=== PATIENT | male | born 1985 | race Caucasian/White ===

== ENCOUNTER 2022-01-22 17:53 | Emergency (ER) | payer SELFPAY ==
[2022-01-22 18:04] VITALS: BP 149/101; PULSE 100; RESP 18; TEMP 36.8; O2SAT 96; BMI 20.5
[2022-01-22 18:14] VITALS: BP 139/80; PULSE 89; RESP 16; O2SAT 95
--- NOTE | 2022-01-22 18:35 | W.ED.WOUNDLC ---
HPI - Wound/Laceration General: Chief Complaint: Wound/Laceration Stated Complaint: Left Knee Injury Chainsaw Time Seen by Provider: 01/22/22 18:08 History of Present Illness: 36-year-old male patient comes in with a anterior knee injury. Incident occurred this afternoon just prior to arrival. Patient was using a chain saw when it caught the left anterior knee. Patient has a laceration to do the site. No signs of serious injury to the deep structures. Patient is ambulatory without difficulty. Review of Systems General: Reports: 10 or more systems reviewed and unremarkable except in HPI and below Card: Denies: chest pain Resp: Denies: dyspnea Musc: Reports: extremity pain Skin/Breast: Reports: new lesions Physical Exam Const: COMMON NORMALS: alert Neck/C-Spine: COMMON NORMALS: full ROM Resp: COMMON NORMALS: normal respiratory effort Cardio: COMMON NORMALS: regular rate and regular rhythm RATE: regular rate RHYTHM: regular rhythm Extremity: LEFT LOWER EXTREMITY: Yes knee joint (7 cm laceration to anterior left knee, no deep tissue injury.) Left knee: Yes inspection, Yes palpation and Yes ROM Neuro: SENSORIUM/ORIENTATION: Yes alert Skin: TRAUMA: laceration (7 cm laceration to the left knee) linear Procedures Laceration Laceration 1: Site: lower extremity Side (If applicable): left Size (cm): 7 Description: linear Depth: simple, single layer Local Anesthetic: lidocaine 2% Amount of anesthesia used (mL): 5 Pre-repair: wound explored, irrigated extensively and deep structures intact Skin layer closed with: other (Staple) Number of sutures: 10 Course Vital Signs: Vital signs: Vital Signs Temperature 98.2 F 01/22/22 18:04 Pulse Rate 89 01/22/22 18:14 Respiratory Rate 16 01/22/22 18:14 Blood Pressure 139/80 01/22/22 18:14 Pulse Oximetry 95 01/22/22 18:14 MDM - Wound/Laceration Medical Decision Making 36-year-old male patient comes in today with injury to the left knee. On exam patient has a laceration to his left knee is approximately 7 cm. Deep structures are intact. No sign of fracture is noted. Minimal foreign particulate is present. Differential diagnosis fracture, foreign body, laceration. No sign of fracture or significant foreign body was noted. Wound was irrigated until clean. Wound was closed with 10 alberto. Patient tolerated procedure well. Patient be kept on cephalexin for prophylaxis antibiotic. Patient and family both reported understanding of care plan need for follow-up or return for staple removal. Discharge Plan Discharge Patient Disposition: Home Clinical Impression: Knee laceration Qualifiers: Encounter type: initial encounter Laterality: left Qualified Code(s): S81.012A - Laceration without foreign body, left knee, initial encounter Condition: Stable Prescriptions: New cephalexin 500 mg capsule 500 mg PO BID 10 Days Qty: 20 0RF Discharge Orders: Discharge ED (Routine); Ordered 01/22/22 Ordered By: Darnell Ni Discharge Diet: Usual diet Discharge Activity: Increase activity as tolerated Patient Instructions: Laceration (ED) Activity Restrictions/Additional Instructions: Keep wound clean and dry. Try not to submerge wound underwater for long periods of time. For the first 48 hours it is strongly recommended to keep the wound as dry as possible. Use acetaminophen and ibuprofen for pain. Take cephalexin 500 twice a day for the next 10 days. [place] need to come out in 10 to 14 days. Follow-up with primary care for staple removal. Return to ER for new concerns. Coding Level of Care Code ED Stitcher Set Up Operator Automatic for Ramirez Fwd Exam Detailed
[2022-01-22] MEDS: cephALEXin 500 mg Capsule PO (18:49)
== END 2022-01-22 19:01 | disposition home or self-care (01) ==
PROVIDERS: Emergency Provider Nurse Practitioner Family
DX: S81.012A Laceration without foreign body, left knee, initial encounter (principal); W29.3XXA Contact with powered garden and outdoor hand tools and machinery, initial encounter
CPT/HCPCS: 12002; 99283